=== PATIENT | female | born 1960 | race Caucasian/White ===

== ENCOUNTER → 2020-02-13 | Outpatient (CLI) | payer BC ==
--- NOTE | 2020-02-13 12:35 | RAD ---
HIP RIGHT 2V WITH PELVIS DATE: 02/13/2020 12:00 AM INDICATION: HIP PAIN COMPARISON: None. FINDINGS: Bones: There is no evidence of acute fracture or dislocation. Joints: The joint spaces are normal. Miscellaneous: None. IMPRESSION: Normal exam Electronically signed by: Sav Araujo MD (02/13/2020 12:32 PM) [id number]
== END ==
LOC: RAD 11:36
PROVIDERS: ATTEND Physician Assistant Medical
DX: M25.551 Pain in right hip (principal)
CPT/HCPCS: 73502